=== PATIENT | female | born 1990 ===

== ENCOUNTER 2018-12-11 17:10 | Emergency (ER) | payer SELFPAY ==
[2018-12-11 17:22] VITALS: BP 130/77; PULSE 78; RESP 17; TEMP 98.4; O2SAT 99
--- NOTE | 2018-12-11 17:50 | C.PDOC ---
History Of Present Illness 28 year old female presents for evaluation of vaginal pain during intercourse. The pt notes having a new sex partner for 3 months. For the last 2 months she states onset pain during intercourse which prompted ED visit. Admits to no use of supplemental lubrication. Denies fever, chills, vaginal bleeding/discharge, dysuria, discharge, urinary symptoms, abdominal pain, nausea, vomiting, or any other associated symptoms. Time Seen by Provider: 12/11/18 17:35 Chief Complaint (Nursing): Female Genitourinary History Per: Patient History/Exam Limitations: no limitations Onset/Duration Of Symptoms: Days (x2 months ) Associated Symptoms: denies: Fever, Chills, Nausea, Vomiting, Urinary Symptoms Recent travel outside of the [place]: No Past Medical History Reviewed: Historical Data, Nursing Documentation, Vital Signs Vital Signs: Last Vital Signs Temp 98.4 F 12/11/18 17:18 Pulse 78 12/11/18 17:18 Resp 17 12/11/18 17:18 BP 130/77 12/11/18 17:18 Pulse Ox 99 12/11/18 17:18 Family History: States: Unknown Family Hx - Social History Hx Alcohol Use: Yes Hx Substance Use: No - Immunization History Hx Tetanus Toxoid Vaccination: (unk) Hx Influenza Vaccination: No Hx Pneumococcal Vaccination: (unk) Review Of Systems Except As Marked, All Systems Reviewed And Found Negative. Constitutional: Negative for: Fever, Chills Gastrointestinal: Negative for: Nausea, Vomiting, Abdominal Pain, Diarrhea Genitourinary: Positive for: Other ((+) pain during intercourse. ). Negative for: Dysuria, Frequency, Vaginal Discharge, Vaginal Bleeding Physical Exam - Physical Exam Appears: Non-toxic, No Acute Distress Skin: Warm, Dry Eye(s): bilateral: Normal Inspection Oral Mucosa: Moist Neck: Normal ROM, Supple Chest: Symmetrical, No Deformity Cardiovascular: Rhythm Regular, No Murmur Respiratory: Normal Breath Sounds, No Rales, No Rhonchi, No Wheezing Gastrointestinal/Abdominal: Normal Exam, Soft, No Tenderness Pelvic: Normal External Exam, Normal Bimanual Exam, No Vaginal Bleeding, No Vaginal Discharge Extremity: Bilateral: Atraumatic, Normal Color And Temperature, Normal ROM Neurological/Psych: Oriented x3, Normal Speech, Normal Cognition ED Course And Treatment O2 Sat by Pulse Oximetry: 99 (RA) Pulse Ox Interpretation: Normal Medical Decision Making Medical Decision Making: Progress/Update: Pt stable for discharge home. Advised to follow-up with [facility] [place] [facility] for further evaluation by HUMANITIES PROFESSOR. Disposition Counseled Patient/Family Regarding: Diagnosis, Need For Followup - Disposition Referrals: [facility] [Outside] Disposition: HOME/ ROUTINE Disposition Time: 17:50 Condition: STABLE Instructions: Dyspareunia (Painful Sex) Forms: [employer] (Omani) - Clinical Impression Clinical Impression: Dyspareunia not due to substance or known physiological condition - Scribe Statement The provider has reviewed the documentation as recorded by the Scribe (Yessi Vanessa) Provider Attestation: All medical record entries made by the Scribe were at my direction and pers onally dictated by me. I have reviewed the chart and agree that the record accurately reflects my personal performance of the history, physical exam, medical decision making, and the department course for this patient. I have also personally directed, reviewed, and agree with the discharge instructions and disposition.
== END 2018-12-11 17:56 | disposition home or self-care (01) ==
LOC: C.ER 17:10
DX: N94.10 Unspecified dyspareunia (principal)